=== PATIENT | male | born 1985 | race Caucasian/White ===

== ENCOUNTER 2018-02-16 00:33 | Emergency (ER) | payer OTHER ==
[~2018-02-16] VITALS: Ht 185.4 cm; Wt 136.1 kg
[2018-02-16 00:40] VITALS: BP 107/72
[2018-02-16] MEDS ORDERED: PAXIL10 MG PO (00:44)
[2018-02-16] MEDS ORDERED: PREDNISONE 20 M20 M1 PO (01:09)
== END 2018-02-16 01:32 | disposition home or self-care (01) ==
LOC: M.ERS 00:33
DX: L25.9 Unspecified contact dermatitis, unspecified cause (principal); F41.9 Anxiety disorder, unspecified